=== PATIENT | male | born 1990 | race Caucasian/White ===

== ENCOUNTER 2017-08-12 08:30 | Emergency (ER) | payer SELFPAY ==
[2017-08-12 08:50] VITALS: TEMP 98.3
--- NOTE | 2017-08-12 10:10 | ED PDOC ---
Arrival/HPI - General Chief Complaint: Lower Extremity Problem/Injury Time Seen by Provider: 08/12/17 09:22 Historian: Patient - History of Present Illness Narrative History of Present Illness (Text): 08/12/17 10:07 26-year-old male presents today with bilateral knee pain right greater then the left that has been worsening. 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 Patient states he had prior injury to the right knee in 2011. Patient states since then he's been having on and off pain in the knee. Patient states pain has been worsening and is now affecting his dancing. Patient states he is also developing the same type of pain in the left knee. Patient describes the pain as an achy pain and a pressure that is worse with ambulation. He denies fevers or chills. Denies calf pain. Denies numbness weakness or tingling in the extremity. Denies decreased range of motion of the knee. States he took Motrin for pain at home with improvement. No other complaints Past Medical History - Provider Review Nursing Documentation Reviewed: Yes - Travel History Have you recently traveled outside [place] w/in the past 3 mons?: No - Tetanus Immunization Tetanus Immunization: Unknown - Psychiatric Hx Substance Use: Yes (marijuana) Family/Social History - Physician Review Nursing Documentation Reviewed: Yes Family/Social History: Unknown Family HX Smoking Status: Former Smoker Hx Alcohol Use: Yes Frequency of alcohol use: Socially Hx Substance Use: Yes (marijuana) Allergies/Home Meds Allergies/Adverse Reactions: Allergies No Known Allergies Allergy (Verified 08/12/17 08:50) Review of Systems - Review of Systems Constitutional: absent: Fatigue, Fevers Respiratory: absent: SOB, Cough Cardiovascular: absent: Chest Pain, Palpitations Gastrointestinal: absent: Abdominal Pain, Nausea, Vomiting Musculoskeletal: Arthralgias. absent: Back Pain, Neck Pain Skin: absent: Rash, Pruritis Neurological: absent: Headache, Dizziness Psychiatric: absent: Anxiety, Depression Physical Exam Vital Signs Reviewed: Yes Vital Signs Temp Pulse Resp BP Pulse Ox 08/12/17 08:46 98.3 F 58 L 16 137/87 100 Temperature: Afebrile Blood Pressure: Normal Pulse: Regular Respiratory Rate: Normal Appearance: Positive for: Well-Appearing, Non-Toxic, Comfortable Pain Distress: None Mental Status: Positive for: Alert and Oriented X 3 - Systems Exam Head: Present: Atraumatic Neck: Present: Normal Range of Motion Respiratory/Chest: Present: Clear to Auscultation, Good Air Exchange. No: Respiratory Distress, Accessory Muscle Use Cardiovascular: Present: Regular Rate and Rhythm, Normal S1, S2. No: Murmurs Back: Present: Normal Inspection Upper Extremity: Present: Normal Inspection Lower Extremity: Present: Normal Inspection, NORMAL PULSES, Normal ROM, Tenderness (Bilateral knees: There is tenderness noted over the anterior aspects of the knee bilaterally. Full range of motion. No edema no erythema and no ecchymosis. No warmth. No calf tenderness. Sensation and distal pulses intact.), Neurovascularly Intact, Capillary Refill < 2 s. No: CALF TENDERNESS, Swelling, Erythema, Deformity, Temperature Abnormalties Medical Decision Making ED Course and Treatment: 08/12/17 10:09 Patient nontoxic well-appearing in no distress with stable vital signs X-rays of the knee: Bilaterally: No fracture Patient refused medications for pain Donnell wraps applied to both knees. Crutches given for ambulation I discussed all results with patient advised to followup with the orthopedist for the next 2 days. Return if symptoms worsen persist or new symptoms develop i advised the patient that although the xrays show no fracture; there is still a possibility for ligamentous or tendon injury the patient must see the orthopedist for further evaluation. Patient verbalizes understanding of discharge instructions and need for immediate followup. all aspects of this case were discussed the attending of record. Impression: knee pain Motrin every 6 hours as needed for pain Rest, ice, compression, elevation Use crutches for ambulation Followup with the orthopedist within the next 2 days Followup with primary care physician within the next 2 days Return if symptoms worsen persist or if new symptoms develop - RAD Interpretation Radiology Orders: 08/12/17 09:22 KNEE W PATELLA BILAT 3 VIEW [RAD] Stat Disposition/Present on Arrival - Present on Arrival Any Indicators Present on Arrival: No History of DVT/PE: No History of Uncontrolled Diabetes: No Urinary Catheter: No History of Decub. Ulcer: No History Surgical Site Infection Following: None - Disposition Have Diagnosis and Disposition been Completed?: Yes Diagnosis: Knee pain, bilateral Disposition: HOME/ ROUTINE Disposition Time: 10:10 Patient Plan: Discharge Condition: GOOD Discharge Instructions (ExitCare): Knee Pain (ED) Additional Instructions: Motrin every 6 hours as needed for pain Rest, ice, compression, elevation Use crutches for ambulation Followup with the orthopedist within the next 2 days Followup with primary care physician within the next 2 days Return if symptoms worsen persist or if new symptoms develop [facility] IS NOT FIT FOR DUTY. [employer] SOMMERS IS FIT FOR TRAVEL. Prescriptions: Ibuprofen [Motrin] 600 mg PO Q6H PRN #20 tab PRN Reason: pain/fever reduction Referrals: Fredrick Malloy DO [Staff Provider] - Follow up with primary Ward Curran III, MD [Medical Doctor] - Follow up with primary Forms: [facility] ([place]), WORK NOTE
[2017-08-12 10:32] VITALS: BP 135/86; PULSE 62; RESP 17; O2SAT 99
--- NOTE | 2017-08-12 12:30 | RAD ---
PROCEDURE: Bilateral Knee Radiographs. HISTORY: b/l knee pain COMPARISON: None. FINDINGS: BONES: Right Knee: Normal. No fracture. Left Knee: Normal. No fracture. JOINTS: Right Knee: Normal. No osteoarthritis. Left knee: Normal. No osteoarthritis. SOFT TISSUES: Right Knee: Normal. Left Knee: Normal. JOINT EFFUSION: Right Knee: None. Left Knee: None. OTHER FINDINGS: None. IMPRESSION: No evidence of acute pathology
== END 2017-08-12 10:40 | disposition home or self-care (01) ==
LOC: ED 08:30 → EDBD 08:30 → ED 10:40
DX: M25.562 Pain in left knee (principal); M25.561 Pain in right knee